=== PATIENT | male | born 1965 | race Caucasian/White ===

== ENCOUNTER 2023-04-27 06:05 | Day surgery (SDC) | payer OTHER ==
[2023-04-25 15:01] VITALS: BMI 29.9
[2023-04-27] MEDS ORDERED: Midazolam HCl 2 mg/2 ml Vial ONE (07:40)
[2023-04-27] MEDS ORDERED: PROPOFOL 60 ML ONE (07:40)
[2023-04-27] MEDS ORDERED: Atropine Sulfate 0.4 mg/1 ml Vial ONE (07:49)
[2023-04-27] MEDS ORDERED: PROPOFOL 40 ML ONE (08:45)
== END 2023-04-27 09:37 | disposition home or self-care (01) ==
LOC: CSHSDC 06:05
PROVIDERS: ATTEND Internal Medicine Gastroenterology
PROC: 0DBE8ZX Excision of Large Intestine, Via Natural or Artificial Opening Endoscopic, Diagnostic (ICD-10-PCS; principal; 2023-04-27)
DX: Z12.11 Encounter for screening for malignant neoplasm of colon (principal); D12.4 Benign neoplasm of descending colon; D12.3 Benign neoplasm of transverse colon; K64.9 Unspecified hemorrhoids; I10 Essential (primary) hypertension; E11.9 Type 2 diabetes mellitus without complications; E78.5 Hyperlipidemia, unspecified; Z79.84 Long term (current) use of oral hypoglycemic drugs; Z79.899 Other long term (current) drug therapy; Z88.8 Allergy status to other drugs, medicaments and biological substances
CPT/HCPCS: 88305; J0461; J2250; J2704